=== PATIENT | female | born 1950 | race Caucasian/White ===

== ENCOUNTER 2018-01-02 10:47 | Emergency (ER) | payer MEDICARE, OTHER ==
[~2018-01-02] VITALS: Ht 162.6 cm; Wt 83.9 kg
--- NOTE | 2018-01-02 10:50 | NUR ---
ARRIVAL PATIENT STATES THAT SHE WAS EATING CHICKEN LAST NIGHT AND A PIECE OF CHICKEN GOT STUCK IN HER THROAT AND SHE IS UNABLE TO SWOLLEN ANYTHING. ASSESSMENT COMPLETED, CONNECTED TO ALL MONITORS, AWAITING MD ARROYO.
--- NOTE | 2018-01-02 11:09 | NUR ---
RAD PT TAKEN TO RAD
[2018-01-02] MEDS ORDERED: GLUCAGEN IV STA ×2 (11:14→12:06)
[2018-01-02 11:21] VITALS: BP 155/95
[2018-01-02] MEDS ORDERED: GLUCAGEN ONE ×2 (11:25→12:01)
[2018-01-02] MEDS ORDERED: WATER 20 ML ONE ×2 (11:25→12:00)
--- NOTE | 2018-01-02 11:25 | NUR ---
RAD PT BACK FROM RAD
--- NOTE | 2018-01-02 12:05 | DIREP ---
PROCEDURE:CHEST 2 VIEWS COMPARISON:None. INDICATIONS:Foreign body FINDINGS: LUNGS/PLEURA:No significant pulmonary parenchymal abnormalities. No effusions. VASCULATURE:Normal. Unremarkable pulmonary vasculature. CARDIAC:Normal. No cardiac silhouette abnormality or cardiomegaly. MEDIASTINUM:Normal. No visible mass or adenopathy. BONES:Normal. No fracture or visible bony lesion. OTHER:Endoluminal contrast within the esophagus with possible obstructing foreign body near the diaphragmatic hiatus. Recommend correlation with CT and/or direct visualization. CONCLUSION:Possible foreign body in the distal esophagus recommend correlation with direct visualization and/or cross-sectional imaging Dictated by: Mata Gatica DO on 01/02/2018 at 12:01 PM
--- NOTE | 2018-01-02 12:05 | NUR ---
STATUS PATIENT ATTEMPTED TO SIP WATER, WAS UNABLE TO SWALLOW, SPIT WATER OUT, DOCTOR PAZ NOTIFIED, NEW ORDER RECEIVED.
[2018-01-02 12:24] VITALS: BP 158/84
--- NOTE | 2018-01-02 13:00 | NUR ---
UPDATE PATIENT PLACED IN A GOWN, MOVED TO ROOM 2, PLACED ON APPLICATION SUPPORT ADMINISTRATOR, ALL MONITORS IN PLACE, SUCTION HOOKED UP AND READY, NC PLACED ON OXYGEN, PATIENT AMBULATORY TO RESTROOM BEFORE PROCEDURE.
--- NOTE | 2018-01-02 13:22 | ER.PDOC ---
General Chief Complaint: General Complaint Stated Complaint: GEN COMPLAINT TRAVEL OUT OF US: No Time seen by MD: 11:10 Source: patient Exam Limitations: no limitations History of Present Illness Initial Comments Pt ate a large piece of chicken yesterday, and got stuck on her esophagus. She has a history of GERD Timing/Duration: 24 hours Severity: moderate Modifying Factors: improves with eating Associated Symptoms: denies symptoms Allergies: Coded Allergies: latex (Verified Allergy, Intermediate, 01/02/18) amoxicillin (Verified Allergy, Unknown, 01/02/18) Home Meds Reported Medications Omeprazole (OMEPRAZOLE) 40 Mg Capsule.dr, 40 MG PO DAILY24 01/02/18 Citalopram Hydrobromide (CITALOPRAM HBR) 10 Mg Tablet, 10 MG PO DAILY24, TABLET 01/02/18 Aspirin (ASPIR 81) 81 Mg Tablet.dr, 81 MG PO DAILY24 01/02/18 Losartan Potassium (LOSARTAN POTASSIUM) 50 Mg Tablet, 50 MG PO DAILY24, TABLET 01/02/18 Past Medical History Medical History: hypertension, other Surgical History: cholecystectomy, hysterectomy LMP (females 10-50): hysterectomy Social History Smoking: non-smoker Alcohol Use: none Drug Use: none Review of Systems Constitutional: no symptoms reported EENTM: see HPI Respiratory: no symptoms reported Cardiovascular: no symptoms reported Gastrointestinal: see HPI Genitourinary: no symptoms reported All Other Systems: Reviewed and Negative Physical Exam General Appearance: No Apparent Distress, WD/WN EENT: eyes nml inspection, nml ENT inspection Neck: Non-Tender, Full Range of Motion, Supple Respiratory: chest non-tender, lungs clear, normal breath sounds, no respiratory distress CVS: reg rate & rhythm, no murmur, no gallop Gastrointestinal: Normal Bowel Sounds, No Organomegaly, No Pulsatile Mass, Non Tender Back: Normal Inspection Extremities: Normal Range of Motion 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 Skin: Normal Color Lymphatic: No Adenopathy Results/Orders Results/Orders Administered Medications Medications (Trade) Dose Ordered Sig/Dominique Route PRN Reason Start Time Stop Time Status Last Admin Dose Admin Glucagon (Glucagen) 1 mg STAT STAT IV 01/02/18 11:14 01/02/18 11:16 DC 01/02/18 11:36 Glucagon (Glucagen) 1 mg STAT STAT IV 01/02/18 12:06 01/02/18 12:08 DC 01/02/18 12:08 Sodium Chloride 1,000 ml @ 1,000 mls/hr Q1H ONCE IV 01/02/18 13:30 01/02/18 14:29 DC 01/02/18 13:40 Progress Progress Transferred pt care to DR Ba at 14:10 Departure Time of Disposition: 15:48 Disposition: 01 HOME, SELF-CARE Impression: Primary Impression: Esophageal foreign body Condition: Stable Patient Instructions: Nasal Foreign Body, [id number] Referrals: SHAMIKA MOLINA (PCP) PRIMARY CARE PROVIDER Duration or Time Spent with Pa: 30 JACK MULLEN MD Jan 02, 2018 13:22
[2018-01-02 13:24] VITALS: BP 93/55
[2018-01-02] MEDS ORDERED: NS 1000ML 1,000 ML IV ONE (13:30)
--- NOTE | 2018-01-02 13:30 | NUR ---
IV NEW IV STARTED 20G TO THE RIGHT HAND
[2018-01-02] MEDS ORDERED: NS 1000ML 1,000 ML ONE ×2 (13:31→14:24)
--- NOTE | 2018-01-02 13:36 | NUR ---
DAY TRADER IN ROOM WITH PATIENT FOR CONSENTS
[2018-01-02] MEDS ORDERED: VERSED ONE (13:39)
[2018-01-02] MEDS ORDERED: SUBLIMAZE ONE ×2 (13:39→13:43)
[2018-01-02] MEDS ORDERED: DIPRIVAN IV ONE (13:39)
[2018-01-02] MEDS ORDERED: WATER ONE (13:42)
--- NOTE | 2018-01-02 14:10 | NUR ---
DR. KRAFT IN ROOM WITH PATIENT FOR EXPLAINATION OF PROCEDURE.
[2018-01-02] MEDS ORDERED: LOSA50TA7 PO (14:16)
[2018-01-02] MEDS ORDERED: OMEP40CA6 PO (14:16)
[2018-01-02] MEDS ORDERED: CITA10TA4 PO (14:16)
[2018-01-02] MEDS ORDERED: ASPI-484 PO (14:16)
--- NOTE | 2018-01-02 14:23 | NUR ---
OR CREW RESUMED CARE OF PATIENT.
--- NOTE | 2018-01-02 15:28 | NUR ---
BUTTER MELTER STATED THAT PATIENT WOULD BE PO CHALLANGED AND THAT PATIENT WOULD BE ABLE TO GO HOME IF PATIENT TOLERATED WITHOUT COMPLAINT, PATIENT ALERT, ORIENTED, AND READY TO DC.
[2018-01-02 16:04] VITALS: BP 93/55
--- NOTE | 2018-01-02 19:31 | OPH ---
DATE OF SURGERY: 01/02/2018 PREOPERATIVE DIAGNOSIS: Foreign body in esophagus. POSTOPERATIVE DIAGNOSES: 1. Foreign body in esophagus, associated distal esophageal ring. 2. Hiatal hernia. SURGEON: Seth Ba DO FORMING MACHINE UPKEEP MECHANIC HELPER: OR staff. ANESTHESIA: Total intravenous anesthesia by Eva Rodriguez CRNA. PROCEDURE PERFORMED: Esophagogastroduodenoscopy with removal of foreign body in esophagus. SPECIMEN REMOVED: None. ESTIMATED BLOOD LOSS: 1 mL. COUNTS: At the completion of the case, counts were correct per OR staff. DESCRIPTION OF PROCEDURE: The patient is a very pleasant 67-year-old female known from previous evaluation. Prior to procedure, informed consent was obtained. At time of procedure, she was placed in the left lateral recumbent position. In the ER, timeout was completed. With adequate sedation, esophagogastroduodenoscope was advanced transorally into the distal esophagus, identified foreign body was located. It is a white meat substance consistent with a poultry product. Attempts were made to withdraw it initially. Subsequently, it is broken into pieces using a snare. After it was adequately decrease in size, it advanced to the body of stomach using the snare tube. Camera was advanced further distally to the level of duodenum. Once duodenum was adequately visualized, camera was slowly withdrawn to facilitate visualization of the duodenal bulb and the pylorus. Distal stomach was grossly normal. Retroflexion maneuver was performed. The cardia has hiatal hernia. There was noted to be food in the fundus from recent removal of foreign body. Camera was reduced. Stomach was decompressed. The scope was slowly withdrawn. The mid and proximal esophagus shows some foreign body, which was irrigated distally, advanced to the body of the stomach. With this complete, the stomach was decompressed. Scope was slowly withdrawn. Distal esophagus showed some changes that are unclear if they are acute or chronic. Mid and proximal esophagus were grossly normal. Vocal cords were visualized within normal limits. Camera was removed. Procedure was discontinued. The patient denies procedure well. There were no acute complications noted. Seth Ba DO DR: VEL/addison JOB# [id number] CC: Dr. Anthony DIAZ
--- NOTE | 2018-01-03 00:26 | CNH ---
DATE OF CONSULTATION: BRIEF CONSULT CHIEF COMPLAINT: Foreign body in esophagus. HISTORY OF PRESENT ILLNESS: A 67-year-old female who reports to me she was eating chicken yesterday at a restaurant in an outside community. She apparently had a sensation of being stuck. She tried to gag at home and pass it without success. She took some meds and water without success and she presents to ER at [facility]. She has apparently had an x-ray with water soluble contrast that shows obstruction of the distal esophagus. She has been treated with 2 separate dose of glucagon without success and surgical evaluation was requested. At the time of my assessment, she is alert and pleasant. She reports she has been having since yesterday. She has had some nausea and vomiting. She reports she has a previous history of esophageal stricture. She is otherwise alert, pleasant and cooperative. ALLERGIES: She reports to me AMOXICILLIN AND LATEX per the chart. HOME MEDICATIONS: Include omeprazole, citalopram, losartan and aspirin daily. PAST MEDICAL HISTORY: Includes hypertension, GERD and anxiety. PAST SURGICAL HISTORY: Includes previous esophageal stricture requiring EGD dilatation and colonoscopy. She has had a cholecystectomy, hysterectomy. SOCIAL HISTORY: Negative for tobacco, alcohol or illicit drug use. IMMUNIZATION STATUS: She did have a flu shot this last year. FAMILY HISTORY: Noncontributory. REVIEW OF SYSTEMS: CONSTITUTIONAL: No fever, chills or weakness. ENDOCRINE: She denies thyroid disease or diabetes. CARDIOVASCULAR: No chest pain or trouble breathing. PULMONARY: No dyspnea or cough. GASTROINTESTINAL: She does have trouble swallowing. PHYSICAL EXAMINATION: VITAL SIGNS: Per the patient's report, she is 5 feet 4 inches, she is 185 pounds, pulse was 68 at the time of my assessment, blood pressure 146/73, previous temperature in the computer is 98.4, respiratory rate of 14. HEENT: Normocephalic, atraumatic. [place] mucous membranes. NECK: Supple and soft. Trachea is midline. No JVD or thyromegaly. HEART: Has regular rate and rhythm. LUNGS: Clear bilaterally. ABDOMEN: Bowel sounds are positive. Abdomen is soft, nontender. EXTREMITIES: Positive radial pulses bilaterally. Positive dorsal pedal pulses bilaterally. NEUROLOGIC: She has no acute findings. Cranial nerves 2-12 are grossly intact. SKIN AND INTEGUMENT: Warm and dry. LABORATORY DATA: She has no labs. DIAGNOSTIC DATA: X-ray shows foreign body changes in the distal esophagus with subsequent associated obstruction. ASSESSMENTS: 1. Apparent foreign body in the esophagus. 2. History of previous esophageal stricture. 3. History of hypertension. PLAN: The patient is seen and examined. Chart was reviewed. We will plan for an emergent EGD with foreign body removal. Seth Ba DO DR: VEL/addison JOB# [id number] CC: Latrice
== END 2018-01-02 16:05 | disposition home or self-care (01) ==
LOC: ER 10:47
DX: T18.128A Food in esophagus causing other injury, initial encounter (principal); I10 Essential (primary) hypertension; Z88.0 Allergy status to penicillin; Z91.040 Latex allergy status; Z79.82 Long term (current) use of aspirin; Z79.899 Other long term (current) drug therapy; Z90.49 Acquired absence of other specified parts of digestive tract; Z90.710 Acquired absence of both cervix and uterus; X58.XXXA Exposure to other specified factors, initial encounter; Y93.89 Activity, other specified; Y92.89 Other specified places as the place of occurrence of the external cause; Y99.8 Other external cause status
CPT/HCPCS: 43247; 71046; 96374; 96376; 99284; J1610 ×2; J2250; J3010 ×2; J3490; J7030 ×2; 96361; 99283; A4216